=== PATIENT | female | born 1940 | race Two or more races ===

== ENCOUNTER → 2017-03-19 | Emergency (ER) | payer OTHER ==
[~2017-03-19] VITALS: Ht 157.5 cm; Wt 63.0 kg
[~2017-03-19] MED LIST: APETIGEN-PLUS1 EACH PO; AVALIDE 150-12.1 TA1; AVALIDE 150-12.1 TA1 PO; CATAPRES0.1 MG; CLONAZEPAM1 MG PO; CLONAZEPAM2 MG PO; GLIMEPIRIDE2 MG; GLIMEPIRIDE4 MG PO; INTEGRA F CAPS1 EACH PO; INTESTINEX680 MG PO; JANUVIA100 MG PO; JANUVIA50 MG; KETO10TA2 PO; MOBIC15 MG PO; NABUMETONE750 MG PO; Neurin-Sl Tablet Sl SL; OMEPRAZOLE20 M1 PO; ORPH100T PO; PEPCID40 MG PO; PHENERGAN25 MG PO; SKELAXIN800 MG PO; TENORMIN25 MG; VISTARIL50 MG PO; VITAMIN B COMPL1 CAP PO; ZANTAC150 M3; ZANTAC150 M3 PO; ZANTAC150 MG PO; ZANTAC300 MG PO; ZOFRAN ODT4 MG/UDTAB PO; ZOFRAN4 MG PO
== END | disposition home or self-care (01) ==
LOC: ER 20:18
DX: M25.532 Pain in left wrist (principal); M79.642 Pain in left hand; S60.212S Contusion of left wrist, sequela; X58.XXXS Exposure to other specified factors, sequela

== ENCOUNTER → 2017-03-20 | Emergency (ER) | payer OTHER ==
[~2017-03-20] VITALS: Ht 152.4 cm; Wt 59.0 kg
== END | disposition home or self-care (01) ==
LOC: ER 19:43
DX: M54.89 Other dorsalgia (principal)

== ENCOUNTER → 2017-03-25 | Emergency (ER) | payer OTHER ==
[~2017-03-25] VITALS: Ht 154.9 cm; Wt 59.0 kg
[~2017-03-25] MED LIST changes: +CLONIDINE HCL0.1 MG PO
== END | disposition home or self-care (01) ==
LOC: ER 20:45
DX: I10 Essential (primary) hypertension (principal)

== ENCOUNTER → 2017-04-08 | Emergency (ER) | payer OTHER ==
[~2017-04-08] MED LIST changes: +ULTRAM50 MG PO
== END | disposition home or self-care (01) ==
LOC: ER 20:28
DX: M54.5 Low back pain (principal); C79.9 Secondary malignant neoplasm of unspecified site

== ENCOUNTER 2017-04-22 09:19 | Outpatient (CLI) | payer OTHER | END 2017-04-22 09:32 | disposition home or self-care (01) | LOC: NUCLEAR 09:19 | DX: C50.411 Malignant neoplasm of upper-outer quadrant of right female breast (principal); C79.51 Secondary malignant neoplasm of bone; E11.9 Type 2 diabetes mellitus without complications; E03.8 Other specified hypothyroidism; E78.2 Mixed hyperlipidemia | CPT/HCPCS: 78816; A9552 ==

== ENCOUNTER → 2017-04-26 | Emergency (ER) | payer OTHER ==
[~2017-04-26] VITALS: Ht 157.5 cm; Wt 63.5 kg
== END | disposition home or self-care (01) ==
LOC: ER 23:05
DX: G89.3 Neoplasm related pain (acute) (chronic) (principal); C79.51 Secondary malignant neoplasm of bone; M54.89 Other dorsalgia

== ENCOUNTER → 2017-04-29 18:21 | Outpatient (CLI) | payer OTHER | END | disposition home or self-care (01) | LOC: RAD 18:21 | DX: C50.411 Malignant neoplasm of upper-outer quadrant of right female breast (principal); C79.51 Secondary malignant neoplasm of bone; E11.9 Type 2 diabetes mellitus without complications; E03.8 Other specified hypothyroidism; E78.2 Mixed hyperlipidemia ==

== ENCOUNTER 2017-05-08 23:38 | Emergency (ER) | payer OTHER ==
[~2017-05-08] VITALS: Ht 157.5 cm; Wt 54.4 kg
== END 2017-05-09 00:57 | disposition home or self-care (01) ==
LOC: ER 23:38
DX: M54.89 Other dorsalgia (principal); K29.70 Gastritis, unspecified, without bleeding

== ENCOUNTER 2017-05-28 22:05 | Emergency (ER) | payer OTHER ==
[~2017-05-28] VITALS: Ht 152.4 cm; Wt 56.2 kg
== END 2017-05-29 01:19 | disposition home or self-care (01) ==
LOC: ER 22:05
DX: K29.70 Gastritis, unspecified, without bleeding (principal); C79.51 Secondary malignant neoplasm of bone

== ENCOUNTER 2017-06-01 21:35 | Emergency (ER) | payer OTHER ==
[~2017-06-01] VITALS: Ht 157.5 cm; Wt 59.0 kg
== END 2017-06-01 23:37 | disposition home or self-care (01) ==
LOC: ER 21:35
DX: K29.70 Gastritis, unspecified, without bleeding (principal)

== ENCOUNTER 2017-07-04 | Emergency (ER) | payer OTHER ==
[~2017-07-04] VITALS: Ht 149.9 cm; Wt 63.5 kg
[2017-07-04] MEDS ORDERED: CLONIDINE HCL0.1 MG PO (05:24)
== END 2017-07-04 06:49 | disposition home or self-care (01) ==
LOC: ER
DX: K29.60 Other gastritis without bleeding (principal)

== ENCOUNTER → 2017-07-15 | Emergency (ER) | payer OTHER ==
[~2017-07-15] VITALS: Ht 157.5 cm; Wt 45.4 kg
== END | disposition home or self-care (01) ==
LOC: ER 00:27
DX: R11.0 Nausea (principal); M54.89 Other dorsalgia

== ENCOUNTER 2017-10-02 15:52 | Inpatient (IN) | payer OTHER ==
[~2017-10-02] VITALS: Ht 154.9 cm; Wt 5.0 kg
== END 2017-10-08 16:29 | disposition home or self-care (01) | DRG 598 ==
LOC: ER 15:52 → SEC-K 10-03 09:49 → MEDJ 10-03 15:50 → SURH 10-03 20:23
PROC: 0W9B3ZX Drainage of Left Pleural Cavity, Percutaneous Approach, Diagnostic (ICD-10-PCS; principal; 2017-10-04)
PROC: 2W3DX2Z Immobilization of Left Lower Arm using Cast (ICD-10-PCS; 2017-10-04)
DX: C50.411 Malignant neoplasm of upper-outer quadrant of right female breast (principal); C79.51 Secondary malignant neoplasm of bone; J91.0 Malignant pleural effusion; N18.4 Chronic kidney disease, stage 4 (severe); M84.422A Pathological fracture, left humerus, initial encounter for fracture; R09.02 Hypoxemia; D63.0 Anemia in neoplastic disease; E11.21 Type 2 diabetes mellitus with diabetic nephropathy; D63.1 Anemia in chronic kidney disease; K52.89 Other specified noninfective gastroenteritis and colitis; E03.8 Other specified hypothyroidism; E11.22 Type 2 diabetes mellitus with diabetic chronic kidney disease; S93.492A Sprain of other ligament of left ankle, initial encounter; S93.491A Sprain of other ligament of right ankle, initial encounter; W01.0XXA Fall on same level from slipping, tripping and stumbling without subsequent striking against object, initial encounter; Y93.89 Activity, other specified; Y92.098 Other place in other non-institutional residence as the place of occurrence of the external cause; Y99.8 Other external cause status; I12.9 Hypertensive chronic kidney disease with stage 1 through stage 4 chronic kidney disease, or unspecified chronic kidney disease; F41.8 Other specified anxiety disorders; K29.50 Unspecified chronic gastritis without bleeding; R42 Dizziness and giddiness

== ENCOUNTER 2017-10-08 21:48 | Emergency (ER) | payer OTHER ==
[~2017-10-08] VITALS: Ht 160 cm; Wt 45.4 kg
== END 2017-10-09 12:06 | disposition home or self-care (01) ==
LOC: ER 21:48
DX: M79.622 Pain in left upper arm (principal); M84.422D Pathological fracture, left humerus, subsequent encounter for fracture with routine healing; Z60.2 Problems related to living alone

== ENCOUNTER → 2017-10-10 | Emergency (ER) | payer OTHER ==
[~2017-10-10] VITALS: Ht 152.4 cm; Wt 45.4 kg
== END | disposition home or self-care (01) ==
LOC: ER 19:36
DX: M84.422S Pathological fracture, left humerus, sequela (principal); Z60.2 Problems related to living alone

== ENCOUNTER 2017-10-11 23:27 | Emergency (ER) | payer OTHER ==
[~2017-10-11] VITALS: Ht 157.5 cm; Wt 47.2 kg
[2017-10-12] MEDS ORDERED: PHENERGAN25 MG PO (08:34)
[2017-10-12] MEDS ORDERED: ULTRAM50 MG PO (08:34)
== END 2017-10-12 12:11 | disposition home or self-care (01) ==
LOC: ER 23:27
DX: M79.622 Pain in left upper arm (principal); M84.422S Pathological fracture, left humerus, sequela; I10 Essential (primary) hypertension

== ENCOUNTER 2017-10-14 17:19 | Emergency (ER) | payer OTHER ==
[~2017-10-14] VITALS: Ht 157.5 cm; Wt 52.2 kg
== END 2017-10-14 21:15 | disposition home or self-care (01) ==
LOC: ER 17:19
DX: M25.442 Effusion, left hand (principal); Z47.89 Encounter for other orthopedic aftercare; T79.8XXS Other early complications of trauma, sequela; X58.XXXS Exposure to other specified factors, sequela

== ENCOUNTER 2017-10-22 22:34 | Emergency (ER) | payer OTHER ==
[~2017-10-22] VITALS: Ht 149.9 cm; Wt 45.4 kg
== END 2017-10-23 08:26 | disposition home or self-care (01) ==
LOC: ER 22:34
DX: M79.602 Pain in left arm (principal); R60.0 Localized edema; T88.8XXA Other specified complications of surgical and medical care, not elsewhere classified, initial encounter

== ENCOUNTER 2017-10-30 00:46 | Emergency (ER) | payer OTHER ==
[~2017-10-30] VITALS: Ht 157.5 cm; Wt 56.7 kg
== END 2017-10-30 13:03 | disposition home or self-care (01) ==
LOC: ER 00:46
DX: M25.511 Pain in right shoulder (principal)

== ENCOUNTER 2017-11-01 02:14 | Emergency (ER) | payer OTHER ==
[~2017-11-01] VITALS: Ht 157.5 cm; Wt 54.4 kg
== END 2017-11-01 09:31 | disposition home or self-care (01) ==
LOC: ER 02:14
DX: M54.89 Other dorsalgia (principal)

== ENCOUNTER 2017-11-25 17:06 | Inpatient (IN) | payer OTHER ==
[~2017-11-25] VITALS: Ht 160 cm; Wt 160.0 kg
[2017-12-31] MEDS ORDERED: LASIX20 MG PO (09:57)
[2017-12-31] MEDS ORDERED: AMLODIPINE BESYL5 MG PO (09:57)
[2017-12-31] MEDS ORDERED: Coreg 25MG TABLET PO (09:57)
[2017-12-31] MEDS ORDERED: XOPENEX0.63 MG/3 IH (09:57)
[2017-12-31] MEDS ORDERED: LOSARTAN POTASS50 MG PO (09:57)
== END 2017-12-31 17:42 | disposition other institution (70) | DRG 597 ==
LOC: ER 17:06 → SEC-K 21:49 → MEDJ 21:49 → MEDI 23:12 → MEDJ 23:12 → ICU 11-27 14:30 → MEDI 12-09 13:52
PROC: 4A033R1 Measurement of Arterial Saturation, Peripheral, Percutaneous Approach (ICD-10-PCS; 2017-11-25)
PROC: 3E0F7GC Introduction of Other Therapeutic Substance into Respiratory Tract, Via Natural or Artificial Opening (ICD-10-PCS; 2017-11-25)
PROC: 5A1955Z Respiratory Ventilation, Greater than 96 Consecutive Hours (ICD-10-PCS; 2017-11-26)
PROC: 0BH17EZ Insertion of Endotracheal Airway into Trachea, Via Natural or Artificial Opening (ICD-10-PCS; 2017-11-26)
PROC: B246ZZZ Ultrasonography of Right and Left Heart (ICD-10-PCS; 2017-11-26)
PROC: 4A12X4Z Monitoring of Cardiac Electrical Activity, External Approach (ICD-10-PCS; 2017-11-26)
PROC: 0W9B30Z Drainage of Left Pleural Cavity with Drainage Device, Percutaneous Approach (ICD-10-PCS; principal; 2017-11-30)
PROC: 02HV33Z Insertion of Infusion Device into Superior Vena Cava, Percutaneous Approach (ICD-10-PCS; 2017-11-30)
PROC: 30233N1 Transfusion of Nonautologous Red Blood Cells into Peripheral Vein, Percutaneous Approach (ICD-10-PCS; 2017-12-01)
PROC: B54NZZZ Ultrasonography of Left Upper Extremity Veins (ICD-10-PCS; 2017-12-03)
PROC: 4A12X4Z Monitoring of Cardiac Electrical Activity, External Approach (ICD-10-PCS; 2017-12-09)
PROC: BW28ZZZ Computerized Tomography (CT Scan) of Head (ICD-10-PCS; 2017-12-15)
PROC: 0W993ZX Drainage of Right Pleural Cavity, Percutaneous Approach, Diagnostic (ICD-10-PCS; 2017-12-19)
PROC: 0BPLX0Z Removal of Drainage Device from Left Lung, External Approach (ICD-10-PCS; 2017-12-24)
PROC: B54NZZZ Ultrasonography of Left Upper Extremity Veins (ICD-10-PCS; 2017-12-27)
DX: C50.411 Malignant neoplasm of upper-outer quadrant of right female breast (principal); J96.01 Acute respiratory failure with hypoxia; I50.33 Acute on chronic diastolic (congestive) heart failure; I63.511 Cerebral infarction due to unspecified occlusion or stenosis of right middle cerebral artery; C79.51 Secondary malignant neoplasm of bone; J91.0 Malignant pleural effusion; I13.0 Hypertensive heart and chronic kidney disease with heart failure and stage 1 through stage 4 chronic kidney disease, or unspecified chronic kidney disease; N18.4 Chronic kidney disease, stage 4 (severe); N17.8 Other acute kidney failure; I82.622 Acute embolism and thrombosis of deep veins of left upper extremity; G81.94 Hemiplegia, unspecified affecting left nondominant side; F01.51 Vascular dementia, unspecified severity, with behavioral disturbance; B37.0 Candidal stomatitis; B37.49 Other urogenital candidiasis; K29.00 Acute gastritis without bleeding; F32.89 Other specified depressive episodes; E86.0 Dehydration; E03.8 Other specified hypothyroidism; D63.0 Anemia in neoplastic disease; E11.22 Type 2 diabetes mellitus with diabetic chronic kidney disease; D63.1 Anemia in chronic kidney disease; E11.21 Type 2 diabetes mellitus with diabetic nephropathy; F44.89 Other dissociative and conversion disorders; E11.65 Type 2 diabetes mellitus with hyperglycemia